=== PATIENT | male | born 1955 | race Caucasian/White ===

== ENCOUNTER 2016-10-27 10:06 | Outpatient (CLI) | payer OTHER ==
--- NOTE | 2016-10-27 10:45 | XRay Report ---
Left knee: Pain. AP and lateral views demonstrate an old vertical fracture through the lateral tibial plateau stabilized with 3 transverse screws in the sub-plateau location. There appears to be a vertical line of incomplete bony union. There is relatively good alignment of the knee and good preservation of the joint spaces. A small periarticular spurs noted on the lateral side. Bony structures otherwise appear generally unremarkable. There may be minimal swelling of the subcutaneous tissues of anterior to the knee however there is no effusion or focal findings. No prior study for comparison. Impression: 1. Old tibial plateau fracture with no apparent acute change. 2. Nonspecific mild soft tissue edema.
== END 2016-10-27 10:07 | disposition home or self-care (01) ==
LOC: XRAY 10:06
PROVIDERS: ATTEND Internal Medicine
DX: M25.562 Pain in left knee (principal); R60.9 Edema, unspecified; S82.142D Displaced bicondylar fracture of left tibia, subsequent encounter for closed fracture with routine healing; X58.XXXD Exposure to other specified factors, subsequent encounter